=== PATIENT | female | born 1955 | race Two or more races ===

== ENCOUNTER 2023-11-13 09:45 | Inpatient (IN) | payer OTHER ==
[~2023-11-13] VITALS: Ht 152.4 cm; Wt 86.6 kg
[2023-11-13] MEDS ORDERED: MYSOLINE50 MG PO (11:47)
[2023-11-13] MEDS ORDERED: LAMICTAL25 M1 PO (11:47)
[2023-11-13] MEDS ORDERED: CANDESARTAN CILE8 MG PO (11:48)
[2023-11-13 11:59] LABS: HEMATOCRIT 40.7 % (36.0-45.00); MEAN CELL VOLUME 88.4 fL (80.00-100.00); MEAN CORPUSCULAR HEMOGLOBIN 30.4 pg (27.00-32.0); MEAN CORPUSCULAR HGB CONC 34.4 g/dl (32.0-36.0); PH,URINE 5.5 (5.0-8.0); PLATELET COUNT 369 K/uL (150-450); RED CELL DISTRIBUTION WIDTH 13.8 % (11.5-14.5); URINE APPEARANCE Clear; URINE BILIRRUBIN Negative (NEGATIVE); URINE BLOOD Negative; URINE COLOR Yellow; URINE LEUKOCYTE Negative; URINE NITRATE Negative; URINE PROTEIN 30 (NEGATIVE)
[2023-11-13 12:03] LABS: URINE BACTERIA 85.6 uL (0.0-1933); URINE EPITHELIAL CELLS 9.5 uL (0.0-38.8); URINE RBC 6.1 uL (0.0-20.8)
[2023-11-13 12:17] LABS: INR < 0.93; PROTHROMBIN TIME 9.7 SECONDS (9.0-11.5); URINE GLUCOSE >=1000 MG/DL (NEGATIVE)
[2023-11-13 12:23] LABS: ALBUMIN 3.8 gm/dL (3.4-5.0); BILIRUBIN TOTAL 0.37 mg/dL (0.3-1.2); CALCIUM 9.6 mg/dL (8.5-10.1); CREATININE SERUM 1.54 mg/dL (0.55-1.02); GFR 33.3; GLOBULINA 3.6 G/DL (2.4-3.5); POTASSIUM 5.25 mEq/L (3.5-5.1); TOTAL PROTEIN 7.4 gm/dL (6.4-8.2)
[2023-11-17] MEDS ORDERED: CEFAZOLIN SODIUM 1,000 MG VIAL ONE (07:30)
[2023-11-17] MEDS ORDERED: TRANEXAMIC ACID 100MG/1ML (1000MG) AMPUL IV ONE ×3 (07:30→10:45)
[2023-11-17] MEDS ORDERED: LAMICTAL150 MG (08:02)
[2023-11-17] MEDS ORDERED: FENOFIBRIC ACI135 MG (08:02)
[2023-11-17] MEDS ORDERED: CELECOXIB200 MG (08:02)
[2023-11-17] MEDS ORDERED: PRIMIDONE50 MG (08:02)
[2023-11-17] MEDS ORDERED: MOUNJARO7.5 MG/0.5 (08:02)
[2023-11-17] MEDS ORDERED: HYDROCHLOROTHIA25 MG (08:02)
[2023-11-17] MEDS ORDERED: FARXIGA10 MG (08:03)
[2023-11-17] MEDS ORDERED: ROSUVASTATIN CA10 MG (08:03)
[2023-11-17] MEDS ORDERED: ARIPIPRAZOLE15 MG (08:03)
[2023-11-17] MEDS ORDERED: VASOFLEX TABLE1 EACH (08:03)
[2023-11-17] MEDS ORDERED: DULOXETINE HCL20 MG (08:03)
[2023-11-17] MEDS ORDERED: VANCOMYCIN HCL 1,000 MG VIAL ONE (09:10)
[2023-11-17] MEDS ORDERED: KETOROLAC TROMETHAMINE 60 MG VIAL IM ONE ×2 (09:10→10:45)
[2023-11-17] MEDS ORDERED: POVIDONE-IODINE 3 EA MED..SWAB TOP ONE (09:10)
[2023-11-17] MEDS ORDERED: BUPIVACAINE HCL/PF 0.5% 30ML ML ONE (09:23)
[2023-11-17] MEDS ORDERED: LIDOCAINE HCL/EPINEPHRINE 20 ML VIAL IJ ONE (09:23)
[2023-11-17] MEDS ORDERED: MORPHINE SULFATE 4 MG/ML CARTRIDGE IV PRN (10:45)
[2023-11-17] MEDS ORDERED: ONDANSETRON HCL 2 MG/ML VIAL IV PRN (10:45)
[2023-11-17] MEDS ORDERED: LIDOCAINE IJ ONE (10:45)
[2023-11-17] MEDS ORDERED: SODIUM CHLORIDE 0.45 % 1,000 ML IV SCH (10:45)
[2023-11-17] MEDS ORDERED: MORPHINE SULFATE 4 MG/ML CARTRIDGE IV ONE (10:45)
[2023-11-17] MEDS ORDERED: POVIDONE-IODINE 0.75 OZ PACKET TOP ONE (10:45)
[2023-11-17] MEDS ORDERED: OxyCODONE HCL 5 MG TABLET (ROXICODONE) PO PRN (10:45)
[2023-11-17] MEDS ORDERED: BUPIVACAINE HCL/PF 0.5% 5MG/ML VIAL IJ ONE (10:45)
[2023-11-17] MEDS ORDERED: CEFAZOLIN SODIUM 1,000 MG VIAL IV ONE (10:45)
[2023-11-17] MEDS ORDERED: VANCOMYCIN HCL 1,000 MG VIAL IR ONE (10:45)
[2023-11-17] MEDS ORDERED: ACETAMINOPHEN 500 MG GEL..CAP PO SCH (12:00)
[2023-11-17] MEDS ORDERED: hydrALAZINE HCL 20 MG VIAL IV PRN (14:00)
[2023-11-17] MEDS ORDERED: DEXTROSE 50 % IN WATER 0.5 G/ML DISP.SYRIN IV PRN (14:15)
[2023-11-17] MEDS ORDERED: INSULIN LISPRO 1,000 UNIT/10 ML UNITS SUBCUTANEO PRN (14:15)
[2023-11-17] MEDS ORDERED: CEFAZOLIN SODIUM 1,000 MG VIAL IV SCH (17:00)
[2023-11-17] MEDS ORDERED: GABAPENTIN 300 MG CAPSULE PO SCH (17:00)
[2023-11-17] MEDS ORDERED: CELECOXIB 200 MG CAPSULE PO SCH (21:00)
[2023-11-17] MEDS ORDERED: FAMOTIDINE/PF 20 MG in 0.9 % SODIUM CHLORIDE 8 ML IV PUSH SCH (21:00)
[2023-11-17] MEDS ORDERED: PRIMIDONE 50 MG TABLET PO SCH (21:00)
[2023-11-18 06:18] LABS: HEMATOCRIT 32.5 % (36.0-45.00); HEMOGLOBIN 10.9 g/dL (12.0-15.00); MEAN CELL VOLUME 89.3 fL (80.00-100.00); MEAN CORPUSCULAR HEMOGLOBIN 30.1 pg (27.00-32.0); MEAN CORPUSCULAR HGB CONC 33.7 g/dl (32.0-36.0); PLATELET COUNT 261 K/uL (150-450); RED BLOOD COUNT 3.64 M/uL (4.00-6.00); RED CELL DISTRIBUTION WIDTH 13.7 % (11.5-14.5)
[2023-11-18] MEDS ORDERED: FAMOTIDINE/PF 20 MG/2 ML VIAL ONE (07:25)
[2023-11-18] MEDS ORDERED: APIXABAN 2.5 MG TABLET PO SCH (09:00)
[2023-11-18] MEDS ORDERED: Duloxetine HCl 30 MG CAPSULE.DR PO SCH (09:00)
[2023-11-18] MEDS ORDERED: CANDESARTAN CILEXETIL 8 MG TAB PO SCH (09:00)
[2023-11-18] MEDS ORDERED: SENNOSIDES 1 TAB TABLET PO SCH (09:00)
[2023-11-18] MEDS ORDERED: VITAMIN B COMPLEX 1 EACH PO SCH (11:10)
[2023-11-18] MEDS ORDERED: Cyanocobalamin/Mecobalamin 1 TAB.SL SL SCH (11:11)
[2023-11-18] MEDS ORDERED: SOD FERRIC GLUC COMPLX/SUCROSE 62.5 MG/5 ML AMPUL IV SCH (11:11)
[2023-11-18 13:30] LABS: PH,URINE 5.5 (5.0-8.0); URINE APPEARANCE Clear; URINE BILIRRUBIN Negative (NEGATIVE); URINE BLOOD Negative; URINE COLOR Yellow; URINE LEUKOCYTE Trace; URINE NITRATE Negative; URINE PROTEIN Negative (NEGATIVE); URINE UROBILINOGEN 0.2 E.U./dl
[2023-11-18 13:35] LABS: URINE BACTERIA 37.7 uL (0.0-1933); URINE EPITHELIAL CELLS 3.7 uL (0.0-38.8); URINE RBC 2.1 uL (0.0-20.8); URINE WBC 15.2 uL (0.0-23.2)
[2023-11-18 14:34] LABS: URINE GLUCOSE 100 MG/DL (NEGATIVE)
[2023-11-19 06:38] LABS: HEMATOCRIT 38.5 % (36.0-45.00); HEMOGLOBIN 12.9 g/dL (12.0-15.00); MEAN CELL VOLUME 88.3 fL (80.00-100.00); MEAN CORPUSCULAR HEMOGLOBIN 29.7 pg (27.00-32.0); MEAN CORPUSCULAR HGB CONC 33.6 g/dl (32.0-36.0); PLATELET COUNT 351 K/uL (150-450); RED BLOOD COUNT 4.36 M/uL (4.00-6.00); RED CELL DISTRIBUTION WIDTH 13.5 % (11.5-14.5)
[2023-11-19] MEDS ORDERED: FAMOTIDINE/PF 20 MG/2 ML VIAL ONE (08:18)
[2023-11-19] MEDS ORDERED: IRON FUM,PS/FOLIC ACID/VITC/B3 1 CAP CAPSULE PO SCH (09:00)
[2023-11-19] MEDS ORDERED: FUROsemide 20 MG/2 ML VIAL IV ONE (10:00)
[2023-11-19] MEDS ORDERED: NOREPINEPHRINE BITARTRATE 1 MG/ML AMPUL IV ONE (11:47)
[2023-11-19 12:59] LABS: ABG PO2 83.2 mmHg (80-100); ABG pCO2 47.9 mmHg (35-45); BASE EXCESS -12.1 mmol/l; BICARBONATE 16.6 mmol/l (23-25); SaO2 91.1 %; Tco2 18.1 mmol/l; allen test SATISFACTORY; o2 100 %; puncture site RADIAL RIGHT
[2023-11-19 13:00] LABS: ABG PH 7.157 (7.35-7.45)
[2023-11-19] MEDS ORDERED: MIDAZOLAM HCL IV SCH (13:30)
[2023-11-19] MEDS ORDERED: NOREPINEPHRINE BITARTRATE 8 MG in DEXTROSE 5 % IN WATER 250 ML IV SCH (13:30)
[2023-11-19] MEDS ORDERED: PANTOPRAZOLE SODIUM 40 MG/VIAL VIAL IV SCH (14:15)
[2023-11-19] MEDS ORDERED: PANTOPRAZOLE SODIUM 40 MG/VIAL VIAL IV PUSH ONE (14:15)
[2023-11-19] MEDS ORDERED: MIDAZOLAM HCL 50 MG in 0.9 % SODIUM CHLORIDE 50 ML IV SCH (14:15)
[2023-11-19 14:36] LABS: ALBUMIN 2.9 gm/dL (3.4-5.0); BILIRUBIN TOTAL 0.42 mg/dL (0.3-1.2); CALCIUM 8.9 mg/dL (8.5-10.1); CREATININE SERUM 2.62 mg/dL (0.55-1.02); GFR 18.04; GLOBULINA 3.4 G/DL (2.4-3.5); MAGNESIUM 2.2 mg/dL (1.8-2.4); PHOSPHOROUS 5.1 mg/dL (2.5-4.9); TOTAL PROTEIN 6.3 gm/dL (6.4-8.2)
[2023-11-19 14:40] LABS: ABG PH 7.278 (7.35-7.45); ABG PO2 209.7 mmHg (80-100); ABG pCO2 33.2 mmHg (35-45); SaO2 99.6 %
[2023-11-19 14:41] LABS: BASE EXCESS -10.4 mmol/l; BICARBONATE 15.12 mmol/l (23-25); Tco2 16.2 mmol/l
[2023-11-19 14:42] LABS: allen test SATISFACTORY; o2 100 %; puncture site RADIAL RIGHT
[2023-11-19] MEDS ORDERED: AMPICILLIN SODIUM/SULBACTAM NA 3,000 MG in 0.9 % SODIUM CHLORIDE 100 ML IV SCH (17:00)
[2023-11-19] MEDS ORDERED: MIDAZOLAM HCL 2 MG/2 ML VIAL IV PUSH STA (18:17)
[2023-11-19 18:54] LABS: HEMATOCRIT 35.2 % (36.0-45.00); HEMOGLOBIN 11.8 g/dL (12.0-15.00); MEAN CELL VOLUME 86.3 fL (80.00-100.00); MEAN CORPUSCULAR HGB CONC 33.6 g/dl (32.0-36.0); PLATELET COUNT 288 K/uL (150-450); RED BLOOD COUNT 4.08 M/uL (4.00-6.00); RED CELL DISTRIBUTION WIDTH 13.7 % (11.5-14.5)
[2023-11-19 19:15] LABS: ALBUMIN 2.8 gm/dL (3.4-5.0); BILIRUBIN TOTAL 0.45 mg/dL (0.3-1.2); CALCIUM 8.7 mg/dL (8.5-10.1); CREATININE SERUM 2.58 mg/dL (0.55-1.02); GFR 18.36; GLOBULINA 3.1 G/DL (2.4-3.5); MAGNESIUM 2.1 mg/dL (1.8-2.4); PHOSPHOROUS 4.5 mg/dL (2.5-4.9); POTASSIUM 5.36 mEq/L (3.5-5.1); TOTAL PROTEIN 5.9 gm/dL (6.4-8.2)
[2023-11-19 19:58] LABS: ABG PO2 153.9 mmHg (80-100); ABG pCO2 35.2 mmHg (35-45); BASE EXCESS -9.6 mmol/l; BICARBONATE 16.2 mmol/l (23-25); SaO2 98.9 %; Tco2 17.2 mmol/l
[2023-11-19 19:59] LABS: allen test SATISFACTORY; o2 100 %; puncture site RADIAL RIGHT
[2023-11-19] MEDS ORDERED: POLYVINYL ALCOHOL 15 ML DROPS OP SCH (21:04)
[2023-11-19] MEDS ORDERED: CHLORHEXIDINE GLUCONATE 15ML BRUSH KIT MM SCH (21:04)
[2023-11-20 06:39] LABS: HEMATOCRIT 30.6 % (36.0-45.00); HEMOGLOBIN 10.7 g/dL (12.0-15.00); MEAN CELL VOLUME 86.3 fL (80.00-100.00); MEAN CORPUSCULAR HEMOGLOBIN 30.2 pg (27.00-32.0); PLATELET COUNT 251 K/uL (150-450); RED BLOOD COUNT 3.55 M/uL (4.00-6.00); RED CELL DISTRIBUTION WIDTH 13.8 % (11.5-14.5)
[2023-11-20 07:04] LABS: CALCIUM 8.8 mg/dL (8.5-10.1); CREATININE SERUM 2.29 mg/dL (0.55-1.02); GFR 21.07; MAGNESIUM 2.2 mg/dL (1.8-2.4); POTASSIUM 5.21 mEq/L (3.5-5.1)
[2023-11-20 07:17] LABS: C-REACTIVE PROTEIN 23.3 MG/DL (0.00-0.29)
[2023-11-20 07:34] LABS: ERYTHROCYTE SEDIMENTATION RATE 45 mm/hr
[2023-11-20 08:35] LABS: ABG PH 7.309 (7.35-7.45); ABG PO2 124.2 mmHg (80-100); BASE EXCESS -7.8 mmol/l; BICARBONATE 17.7 mmol/l (23-25); SaO2 98.2 %; Tco2 18.8 mmol/l
[2023-11-20 08:38] LABS: allen test SATISFACTORY; o2 60 %; puncture site RADIAL LEFT
[2023-11-20] MEDS ORDERED: POLYVINYL ALCOHOL 15 ML DROPS OP SCH (09:00)
[2023-11-20] MEDS ORDERED: 0.9 % SODIUM CHLORIDE 1,000 ML IV SCH (11:00)
[2023-11-20] MEDS ORDERED: 0.9 % SODIUM CHLORIDE 1,000 ML IV ONE ×2 (11:30→14:30)
[2023-11-20] MEDS ORDERED: MEROPENEM 1,000 MG VIAL IV SCH (13:36)
[2023-11-20 13:45] LABS: CHOL HDL RATIO 2.2 (0-5.0); CREATININE SERUM 2.15 mg/dL (0.55-1.02); GFR 22.66; POTASSIUM 4.95 mEq/L (3.5-5.1)
[2023-11-20] MEDS ORDERED: AA 5 %/CALCIUM/LYTES/DEXT 20 % 1,000 ML CENTRAL SCH (17:00)
[2023-11-20] MEDS ORDERED: PROPOFOL 100 ML IV SCH (21:30)
[2023-11-21 07:38] LABS: ALBUMIN 1.8 gm/dL (3.4-5.0); BILIRUBIN TOTAL 0.36 mg/dL (0.3-1.2); CREATININE SERUM 1.5 mg/dL (0.55-1.02); GFR 34.33; GLOBULINA 2.7 G/DL (2.4-3.5); POTASSIUM 4.97 mEq/L (3.5-5.1); TOTAL PROTEIN 4.5 gm/dL (6.4-8.2)
[2023-11-21 07:48] LABS: HEMATOCRIT 24.5 % (36.0-45.00); MEAN CELL VOLUME 88.9 fL (80.00-100.00); MEAN CORPUSCULAR HGB CONC 34.4 g/dl (32.0-36.0); PLATELET COUNT 174 K/uL (150-450); RED BLOOD COUNT 2.75 M/uL (4.00-6.00); RED CELL DISTRIBUTION WIDTH 13.9 % (11.5-14.5)
[2023-11-21 07:56] LABS: HEMOGLOBIN 8.4 g/dL (12.0-15.00); MEAN CORPUSCULAR HEMOGLOBIN 30.5 pg (27.00-32.0)
[2023-11-21 08:54] LABS: ABG PH 7.284 (7.35-7.45); ABG PO2 122.5 mmHg (80-100); ABG pCO2 38.1 mmHg (35-45)
[2023-11-21 08:55] LABS: BASE EXCESS -8.3 mmol/l; BICARBONATE 17.7 mmol/l (23-25); Tco2 18.9 mmol/l; allen test SATISFACTORY; o2 50 %; puncture site RADIAL RIGHT
[2023-11-21 11:00] LABS: ABG pCO2 37.4 mmHg (35-45)
[2023-11-21 11:01] LABS: BASE EXCESS -8.2 mmol/l; BICARBONATE 17.6 mmol/l (23-25); SaO2 96.8 %; Tco2 18.7 mmol/l
[2023-11-21 11:04] LABS: allen test SATISFACTORY; o2 40 %; puncture site RADIAL LEFT
[2023-11-22 12:38] LABS: ABG PH 7.319 (7.35-7.45); ABG PO2 117.7 mmHg (80-100); ABG pCO2 36.2 mmHg (35-45); BASE EXCESS -7.1 mmol/l; BICARBONATE 18.2 mmol/l (23-25); Tco2 19.3 mmol/l
[2023-11-22 12:43] LABS: allen test SATISFACTORY; o2 40 %; puncture site RADIAL LEFT
[2023-11-22 16:26] LABS: HEMATOCRIT 32.7 % (36.0-45.00); HEMOGLOBIN 11.3 g/dL (12.0-15.00); MEAN CELL VOLUME 85.9 fL (80.00-100.00); MEAN CORPUSCULAR HEMOGLOBIN 29.6 pg (27.00-32.0); MEAN CORPUSCULAR HGB CONC 34.4 g/dl (32.0-36.0); PLATELET COUNT 211 K/uL (150-450); RED BLOOD COUNT 3.81 M/uL (4.00-6.00); RED CELL DISTRIBUTION WIDTH 14.7 % (11.5-14.5)
[2023-11-23 08:35] LABS: ABG PH 7.331 (7.35-7.45); ABG PO2 157.1 mmHg (80-100); ABG pCO2 37.8 mmHg (35-45); BASE EXCESS -5.7 mmol/l; BICARBONATE 19.5 mmol/l (23-25); SaO2 99.2 %; Tco2 20.7 mmol/l; o2 40 %
[2023-11-23 08:36] LABS: allen test SATISFACTORY; puncture site RADIAL LEFT
[2023-11-23] MEDS ORDERED: ALBUTEROL SULFATE 3 ML/2.5 MG AMPUL.NEB IH SCH (09:43)
[2023-11-23] MEDS ORDERED: RACEPINEPHRINE HCL 0.5 ML AMPUL IH ONE (09:45)
[2023-11-23 10:14] LABS: ABG PH 7.345 (7.35-7.45); ABG PO2 135.2 mmHg (80-100); ABG pCO2 35.8 mmHg (35-45); BASE EXCESS -5.8 mmol/l; BICARBONATE 19.1 mmol/l (23-25); SaO2 98.8 %; Tco2 20.2 mmol/l
[2023-11-23 10:15] LABS: allen test SATISFACTORY; o2 40 %; puncture site RADIAL LEFT
[2023-11-23 13:39] LABS: ABG PH 7.344 (7.35-7.45); ABG PO2 119.4 mmHg (80-100); ABG pCO2 35.7 mmHg (35-45); BASE EXCESS -5.9 mmol/l; SaO2 98.3 %; Tco2 20.1 mmol/l
[2023-11-23 13:40] LABS: allen test SATISFACTORY; o2 35 %; puncture site RADIAL LEFT
[2023-11-23] MEDS ORDERED: CEFTRIAXONE SODIUM 2,000 MG VIAL IV SCH (17:00)
[2023-11-23] MEDS ORDERED: METRONIDAZOLE/SODIUM CHLORIDE 100 ML IV SCH (21:00)
[2023-11-24 07:16] LABS: HEMOGLOBIN 11.6 g/dL (12.0-15.00); MEAN CELL VOLUME 87.4 fL (80.00-100.00); MEAN CORPUSCULAR HEMOGLOBIN 29.8 pg (27.00-32.0); MEAN CORPUSCULAR HGB CONC 34.1 g/dl (32.0-36.0); PLATELET COUNT 242 K/uL (150-450); RED BLOOD COUNT 3.89 M/uL (4.00-6.00); RED CELL DISTRIBUTION WIDTH 14.6 % (11.5-14.5)
[2023-11-24 07:23] LABS: CALCIUM 8.3 mg/dL (8.5-10.1); CREATININE SERUM 0.77 mg/dL (0.55-1.02); GFR 74.11; PHOSPHOROUS 3.2 mg/dL (2.5-4.9); POTASSIUM 3.98 mEq/L (3.5-5.1)
[2023-11-24] MEDS ORDERED: IOHEXOL 350 mgI/ML 50ML BOTT PO ONE (09:30)
[2023-11-24] MEDS ORDERED: FOLIC ACID 1 MG TABLET PO SCH (14:15)
[2023-11-24] MEDS ORDERED: SOD FERRIC GLUC COMPLX/SUCROSE 62.5 MG in 0.9 % SODIUM CHLORIDE 50 ML IV SCH (14:15)
[2023-11-24] MEDS ORDERED: Cyanocobalamin/Mecobalamin 1 TAB.SL SL SCH (14:16)
[2023-11-24] MEDS ORDERED: AMINO ACIDS 1 EACH TABLET PO SCH (17:00)
[2023-11-24] MEDS ORDERED: LEVALBUTEROL HCL 0.63 MG/3 ML SOLUTION IH SCH (18:00)
[2023-11-24] MEDS ORDERED: PANTOPRAZOLE SODIUM 40 MG/VIAL VIAL IV SCH (21:00)
[2023-11-25] MEDS ORDERED: ENOXAPARIN SODIUM 40 MG/0.4 ML SYRINGE SUBCUTANEO SCH (09:00)
[2023-11-25] MEDS ORDERED: FLUMAZENIL 0.5 MG/5ML ML IV ONE (13:33)
[2023-11-25] MEDS ORDERED: MIDAZOLAM HCL 2 MG/2 ML VIAL IV ONE (13:45)
[2023-11-25] MEDS ORDERED: fentaNYL CITRATE 50 MCG/ML AMPUL IV ONE (13:45)
[2023-11-25] MEDS ORDERED: AMINO ACIDS 1 EACH TABLET PO SCH (17:00)
[2023-11-25 21:25] LABS: HEMATOCRIT 34.2 % (36.0-45.00); HEMOGLOBIN 11.5 g/dL (12.0-15.00); MEAN CELL VOLUME 85.8 fL (80.00-100.00); MEAN CORPUSCULAR HGB CONC 33.8 g/dl (32.0-36.0); PLATELET COUNT 229 K/uL (150-450); RED BLOOD COUNT 3.98 M/uL (4.00-6.00); RED CELL DISTRIBUTION WIDTH 14.1 % (11.5-14.5)
[2023-11-25 21:45] LABS: ALBUMIN 2.1 gm/dL (3.4-5.0); BILIRUBIN TOTAL 0.37 mg/dL (0.3-1.2); CREATININE SERUM 0.75 mg/dL (0.55-1.02); GFR 76.39; GLOBULINA 3.3 G/DL (2.4-3.5); POTASSIUM 4.06 mEq/L (3.5-5.1); TOTAL PROTEIN 5.4 gm/dL (6.4-8.2)
[2023-11-26] MEDS ORDERED: ENOXAPARIN SODIUM 30 MG/0.3 ML SYRINGE SUBCUTANEO SCH (21:00)
[2023-11-26] MEDS ORDERED: ENOXAPARIN SODIUM 40 MG/0.4 ML SYRINGE SUBCUTANEO SCH (21:00)
[2023-11-27 07:10] LABS: HEMOGLOBIN 11.6 g/dL (12.0-15.00); MEAN CELL VOLUME 87.5 fL (80.00-100.00); MEAN CORPUSCULAR HEMOGLOBIN 29.9 pg (27.00-32.0); MEAN CORPUSCULAR HGB CONC 34.1 g/dl (32.0-36.0); PLATELET COUNT 242 K/uL (150-450); RED BLOOD COUNT 3.89 M/uL (4.00-6.00)
[2023-11-27 07:27] LABS: CALCIUM 8.7 mg/dL (8.5-10.1); CREATININE SERUM 0.81 mg/dL (0.55-1.02); GFR 69.9; POTASSIUM 3.85 mEq/L (3.5-5.1)
[2023-11-29] MEDS ORDERED: CANDESARTAN CILEXETIL 8 MG TAB PO SCH (10:16)
[2023-11-30 06:13] LABS: HEMATOCRIT 31.6 % (36.0-45.00); HEMOGLOBIN 10.7 g/dL (12.0-15.00); MEAN CELL VOLUME 86.6 fL (80.00-100.00); MEAN CORPUSCULAR HEMOGLOBIN 29.4 pg (27.00-32.0); PLATELET COUNT 259 K/uL (150-450); RED BLOOD COUNT 3.65 M/uL (4.00-6.00); RED CELL DISTRIBUTION WIDTH 14.3 % (11.5-14.5)
[2023-11-30 06:41] LABS: ALBUMIN 2.5 gm/dL (3.4-5.0); BILIRUBIN TOTAL 0.49 mg/dL (0.3-1.2); CALCIUM 8.8 mg/dL (8.5-10.1); CREATININE SERUM 0.87 mg/dL (0.55-1.02); GFR 64.37; GLOBULINA 2.9 G/DL (2.4-3.5); PHOSPHOROUS 3.5 mg/dL (2.5-4.9); POTASSIUM 3.77 mEq/L (3.5-5.1); TOTAL PROTEIN 5.4 gm/dL (6.4-8.2)
[2023-11-30] MEDS ORDERED: DUI500 PO (08:40)
[2023-11-30] MEDS ORDERED: PERCOCET 5-3251 EACH PO (08:40)
[2023-11-30] MEDS ORDERED: LOVENOX30 MG/0.3 SUBCUTANEO (08:40)
[2023-12-01] MEDS ORDERED: PROTONIX40 MG PO (19:11)
== END 2023-11-30 17:45 | DRG 469 ==
LOC: O/R 11-17 06:30 → SURG 11-17 06:30 → SURH 11-17 09:45 → SURG 11-17 13:04 → SURH 11-17 14:30 → ICU 11-19 12:37 → SURG 11-26 18:32 → SURH 11-27 13:43 → SURG 11-27 14:03
PROVIDERS: Internal Medicine; Internal Medicine Geriatric Medicine; Internal Medicine Hematology & Oncology; Internal Medicine Nephrology; ADMIT Orthopaedic Surgery; ATTEND Orthopaedic Surgery
PROC: 0SRD0J9 Replacement of Left Knee Joint with Synthetic Substitute, Cemented, Open Approach (ICD-10-PCS; principal; 2023-11-17 14:30)
PROC: 0BH17EZ Insertion of Endotracheal Airway into Trachea, Via Natural or Artificial Opening (ICD-10-PCS; 2023-11-19)
PROC: 5A1945Z Respiratory Ventilation, 24-96 Consecutive Hours (ICD-10-PCS; 2023-11-19)
PROC: 02HV33Z Insertion of Infusion Device into Superior Vena Cava, Percutaneous Approach (ICD-10-PCS; 2023-11-19)
PROC: B24BZZZ Ultrasonography of Heart with Aorta (ICD-10-PCS; 2023-11-19)
PROC: 30233N1 Transfusion of Nonautologous Red Blood Cells into Peripheral Vein, Percutaneous Approach (ICD-10-PCS; 2023-11-22)
PROC: BW21YZZ Computerized Tomography (CT Scan) of Abdomen and Pelvis using Other Contrast (ICD-10-PCS; 2023-11-24)
PROC: 0DB68ZX Excision of Stomach, Via Natural or Artificial Opening Endoscopic, Diagnostic (ICD-10-PCS; 2023-11-25)
PROC: 4A12X4Z Monitoring of Cardiac Electrical Activity, External Approach (ICD-10-PCS; 2023-11-26)
DX: M17.12 Unilateral primary osteoarthritis, left knee (principal); J69.0 Pneumonitis due to inhalation of food and vomit; J95.821 Acute postprocedural respiratory failure; R65.21 Severe sepsis with septic shock; K22.11 Ulcer of esophagus with bleeding; D62 Acute posthemorrhagic anemia; K91.30 Postprocedural intestinal obstruction, unspecified as to partial versus complete; N17.9 Acute kidney failure, unspecified; M22.12 Recurrent subluxation of patella, left knee; G47.33 Obstructive sleep apnea (adult) (pediatric); E66.01 Morbid (severe) obesity due to excess calories; E78.5 Hyperlipidemia, unspecified; I12.9 Hypertensive chronic kidney disease with stage 1 through stage 4 chronic kidney disease, or unspecified chronic kidney disease; E11.22 Type 2 diabetes mellitus with diabetic chronic kidney disease; N18.9 Chronic kidney disease, unspecified; Z79.4 Long term (current) use of insulin; F48.9 Nonpsychotic mental disorder, unspecified